=== PATIENT | female | born 2000 | race African-American/Black ===

== ENCOUNTER 2022-11-27 19:50 | Emergency (ER) | payer OTHER ==
[~2022-11-27] VITALS: Ht 157.5 cm; Wt 72.0 kg
[2022-11-27 20:00] VITALS: BP 107/70
[2022-11-27 20:15] VITALS: BP 112/63
[2022-11-27 20:30] VITALS: BP 113/63
[2022-11-27 20:40] LABS: URINE BILIRUBIN - DIPSTICK Negative (NEGATIVE); URINE BLOOD DIPSTICK Negative (NEGATIVE); URINE GLUCOSE - DIPSTICK Negative (NEGATIVE); URINE KETONE Trace mg/dL (NEGATIVE); URINE LEUK ESTERASE Negative (NEGATIVE); URINE NITRITE - DIPSTICK Negative (Negative); URINE PROTEIN - DIPSTICK Negative (NEG-TRACE); URINE SPECIFIC GRAVITY >=1.030; URINE UROBILINOGEN - DIPSTICK 0.2 E.U./dL (0.2)
[2022-11-27 20:43] LABS: URINE COLOR Yellow
[2022-11-27 20:45] VITALS: BP 120/66
[2022-11-27] MEDS ORDERED: PAXLOVID PO (20:56)
[2022-11-27 21:00] VITALS: BP 125/91
[2022-11-27 21:14] VITALS: BP 125/91
== END 2022-11-27 21:14 | disposition home or self-care (01) ==
LOC: ED 19:50
PROVIDERS: Emergency Medicine
DX: U07.1 COVID-19 (principal); R50.9 Fever, unspecified; R05.9 Cough, unspecified; M79.10 Myalgia, unspecified site